=== PATIENT | female | born 1970 | race Caucasian/White ===

== ENCOUNTER 2018-01-27 13:45 | Emergency (ER) | payer OTHER ==
[~2018-01-27] VITALS: Ht 160 cm; Wt 45.4 kg
[2018-01-27] MEDS ORDERED: PROP20TA19 PO (13:55)
[2018-01-27] MEDS ORDERED: ALBU18HF2 IH (13:55)
[2018-01-27] MEDS ORDERED: LORA-259 PO (13:55)
[2018-01-27] MEDS ORDERED: METH10TA80 PO (13:55)
[2018-01-27] MEDS ORDERED: PROPRANOLOL HCL 1 MG/1 ML VIAL IVP ONE ×2 (14:45→15:30)
[2018-01-27] MEDS ORDERED: LORAZEPAM 2 MG/1 ML VIAL IV ONE (14:45)
[2018-01-27] MEDS ORDERED: ONDANSETRON 4 MG/2 ML VIAL IV ONE (14:45)
[2018-01-27] MEDS ORDERED: IV NORMAL SALINE 1000 ML BAG IV ONE (14:45)
[2018-01-27] MEDS ORDERED: ONDANSETRON 4 MG/2 ML VIAL ONE (14:52)
[2018-01-27] MEDS ORDERED: LORAZEPAM 2 MG/1 ML VIAL ONE (14:53)
[2018-01-27 15:15] LABS: BASOPHILS % (AUTO) 0.7 % (0.0-2.0); EOSINOPHILS # (AUTO) 0.2 K/uL (0.0-0.7); EOSINOPHILS % (AUTO) 4.4 % (0.0-7.0); HEMATOCRIT 45.2 % (31.2-41.9); HEMOGLOBIN 14.9 g/dL (10.9-14.3); LYMPHOCYTES # (AUTO) 2.1 K/uL (20.0-40.0); LYMPHOCYTES % (AUTO) 38.9 % (20.5-51.5); MEAN CORPUSCULAR HEMOGLOBIN 25.8 uug (24.7-32.8); MEAN CORPUSCULAR HGB CONC 33 g/dL (32.3-35.6); MEAN CORPUSCULAR VOLUME 78.5 fL (75.5-95.3); MONOCYTES # (AUTO) 0.6 K/uL (2.0-10.0); MONOCYTES % (AUTO) 11.6 % (0.0-11.0); NEUTROPHILS # (AUTO) 2.4 K/uL (1.8-8.9); NEUTROPHILS % (AUTO) 44.4 % (38.5-71.5); PLATELET COUNT (AUTO) 204 K/uL (179-408); RED BLOOD CELL COUNT(AUTO) 5.76 MIL/uL (3.63-4.92); WHITE BLOOD COUNT (AUTO) 5.5 K/uL (3.8-11.8)
[2018-01-27 15:28] VITALS: BP 133/86
[2018-01-27 15:34] LABS: CARBON DIOXIDE 26 mmol/L (21-32); CHLORIDE 103 mmol/L (98-107); CREATININE 0.5 mg/dL (0.6-1.3); GLUCOSE 115 mg/dL (74-106); POTASSIUM 3.9 mmol/L (3.5-5.1); UREA NITROGEN, BLOOD 28 mg/dL (7-18)
[2018-01-27 15:39] LABS: ALANINE AMINOTRANSFERASE 44 U/L (14-59); ALKALINE PHOSPHATASE 153 U/L (50-136); ASPARTATE AMINOTRANSFERASE 28 U/L (15-37); BILIRUBIN,DIRECT 0.1 mg/dL (0.0-0.2); BILIRUBIN,TOTAL 0.4 mg/dL (0.2-1.0); TOTAL PROTEIN, SERUM 8.3 g/dL (6.4-8.2)
--- NOTE | 2018-01-27 16:00 | NUR ---
Pt sleeping with eyes closed, NAD noted.
[2018-01-27 16:31] LABS: THYROID STIMULATING HORMONE < 0.007 mIU/mL (0.358-3.740)
--- NOTE | 2018-01-27 17:00 | NUR ---
Called [facility] transfer center per Dr. Carbajal request. Spoke with Garth who stated we need to call the IPA first. Face sheet faxed to Garth ([phone]) as requested. Martha in ER admitting notified and stated she will call the IPA.
--- NOTE | 2018-01-27 17:20 | NUR ---
Dr. Carbajal spoke with Gagan from pt's IPA via telephone.
--- NOTE | 2018-01-27 17:28 | NUR ---
Received telephone call from Gagan from pt's IPA who stated our ER physician needs to speak with Dr. Gomez ([phone]) to discuss the case.
--- NOTE | 2018-01-27 17:30 | NUR ---
Called Dr. Gomez at [phone] twice and number was busy.
--- NOTE | 2018-01-27 17:40 | NUR ---
Dr. Carbajal spoke with Dr. Gomez ) via telephone. Per Dr. Carbajal the patient was accepted by Dr. Gomez.
--- NOTE | 2018-01-27 18:00 | NUR ---
Pt is resting in gurney and eating a sandwich with NAD noted at this time. Pending call back with further transfer information.
--- NOTE | 2018-01-27 18:10 | NUR ---
While pt was eating she pulled her saline lock out by accident (left hand, cath intact ). New saline lock started to RAC.
--- NOTE | 2018-01-27 19:05 | NUR ---
Hands off report given to Isidro GRIFFIN.
--- NOTE | 2018-01-27 19:09 | NUR ---
Received call from [facility]hmadi, room provided for patient [id number], Tel# to report to . Daiana requested face sheet and patient medical information to be faxed to .
--- NOTE | 2018-01-27 19:35 | NUR ---
Called [facility] for patient transport to [facility], spoke with DAVID Georges for ACLS transport [id number]. Trip# [id number].
--- NOTE | 2018-01-27 19:35 | NUR ---
Sachi leal in ED - 01/27/18 at 7 by DARLINE Called [facility] for patient transport to [facility], spoke with DAVID Georges for ACLS transport 0. Trip# [id number].
--- NOTE | 2018-01-27 21:42 | NUR ---
Passed SBAR report to [facility] ELIAS Benitez.
--- NOTE | 2018-01-27 22:55 | NUR ---
[facility] arrived to transport patient to [facility].
--- NOTE | 2018-01-27 23:05 | NUR ---
Patient out of ER via [facility] to be transported to [facility].
== END 2018-01-27 23:08 | disposition short-term general hospital (02) ==
LOC: ER 13:46
DX: E05.01 Thyrotoxicosis with diffuse goiter with thyrotoxic crisis or storm (principal); J45.909 Unspecified asthma, uncomplicated; F17.210 Nicotine dependence, cigarettes, uncomplicated; Z88.0 Allergy status to penicillin; Z79.899 Other long term (current) drug therapy
CPT/HCPCS: 36415; 70030-TC; 71045; 82533; 84443; 85025; 85730; 93005; A4663; J1800; J2060; J2405; J7030

== ENCOUNTER 2019-11-22 22:09 | Emergency (ER) | payer OTHER ==
[~2019-11-22] VITALS: Ht 160 cm; Wt 45.4 kg
--- NOTE | 2019-11-22 22:20 | NUR ---
Dr. Mao at bedside for MSE
[2019-11-22 22:56] LABS: BASOPHILS % (AUTO) 0.3 % (0.0-2.0); EOSINOPHILS # (AUTO) 0.3 K/uL (0.0-0.7); EOSINOPHILS % (AUTO) 2.9 % (0.0-7.0); HEMATOCRIT 41.1 % (31.2-41.9); HEMOGLOBIN 13.4 g/dL (10.9-14.3); LYMPHOCYTES # (AUTO) 1.7 K/uL (20.0-40.0); LYMPHOCYTES % (AUTO) 16.5 % (20.5-51.5); MEAN CORPUSCULAR HEMOGLOBIN 26.2 uug (24.7-32.8); MEAN CORPUSCULAR HGB CONC 33 g/dL (32.3-35.6); MEAN CORPUSCULAR VOLUME 80.2 fL (75.5-95.3); MONOCYTES # (AUTO) 0.8 K/uL (2.0-10.0); MONOCYTES % (AUTO) 7.5 % (0.0-11.0); NEUTROPHILS # (AUTO) 7.4 K/uL (1.8-8.9); NEUTROPHILS % (AUTO) 72.8 % (38.5-71.5); PLATELET COUNT (AUTO) 199 K/uL (179-408); RED BLOOD CELL COUNT(AUTO) 5.12 MIL/uL (3.63-4.92); WHITE BLOOD COUNT (AUTO) 10.1 K/uL (3.8-11.8)
[2019-11-22 23:01] LABS: CARBON DIOXIDE 31 mmol/L (21-32); CHLORIDE 100 mmol/L (98-107); CREATININE 0.4 mg/dL (0.6-1.3); GLUCOSE 126 mg/dL (74-106); POTASSIUM 4.3 mmol/L (3.5-5.1); UREA NITROGEN, BLOOD 13 mg/dL (7-18)
[2019-11-22 23:12] LABS: ALANINE AMINOTRANSFERASE 33 U/L (14-59); ALKALINE PHOSPHATASE 168 U/L (50-136); ASPARTATE AMINOTRANSFERASE 13 U/L (15-37); BILIRUBIN,DIRECT 0.1 mg/dL (0.0-0.2); BILIRUBIN,TOTAL 0.4 mg/dL (0.2-1.0); TOTAL PROTEIN, SERUM 7.7 g/dL (6.4-8.2)
[2019-11-22] MEDS ORDERED: IV NS 1000 ML 1,000 ML IV ONE (23:45)
[2019-11-22] MEDS ORDERED: PROPRANOLOL HCL 10 MG TABLET PO ONE (23:45)
[2019-11-23] MEDS ORDERED: PROPRANOLOL HCL 10 MG TABLET ONE
--- NOTE | 2019-11-23 00:38 | NUR ---
urine sample collected and sent to lab
[2019-11-23 00:45] LABS: *BILIRUBIN,URIN NEGATIVE (NEGATIVE); *BLOOD, URINE 2+ (NEGATIVE); *CLARITY,URINE CLOUDY (CLEAR); *COLOR,URINE YELLOW (YELLOW); *KETONES,URINE NEGATIVE (NEGATIVE); *UROBILINOGEN,URINE 0.2 E.U./dl (NORMAL); LEUKOCYTE ESTERASE ,URINE 3+ (NEGATIVE); NITRITE, URINE NEGATIVE (NEGATIVE); UGLUCOSE NEGATIVE (NEGATIVE)
--- NOTE | 2019-11-23 00:46 | NUR ---
Patient taken to CT scan in stable condition
[2019-11-23] MEDS ORDERED: SWABABLE VALVE TRANSFER SET EA MC ONE (00:47)
[2019-11-23] MEDS ORDERED: IV NORMAL SALINE 250 ML IV ONE (00:47)
[2019-11-23] MEDS ORDERED: IOHEXOL 300MG/ML 100 ML INFUS..BTL ONE (00:47)
--- NOTE | 2019-11-23 01:00 | NUR ---
patient back from CT scan
[2019-11-23] MEDS ORDERED: METHIMAZOLE 5 MG TABLET PO SCH (01:15)
--- NOTE | 2019-11-23 01:22 | NUR ---
IV removed. Catheter intact and site benign. Pressure and 4x4 gauze applied to site. No bleeding noted. Patient does not wish to proceed with medical care recommended by Dr. Mao. Patient given information related to possible complications, up to and including , which could occur as a result of leaving the hospital at this time. Patient verbalizes understanding of risks involved due to leaving against medical advice. Patient has signed AMA form. Patient ambulating with steady gait
[2019-11-23 01:29] VITALS: BP 134/72
[2019-11-23 01:36] LABS: BACTERIA,URINE MODERATE /HPF (NONE SEEN); RBC,URINE 20-50 /HPF (0-3); SQUAMOUS EPITHELIAL CELL,UR FEW /HPF (NONE SEEN); WBC,URINE 50-80 /HPF (0-3)
== END 2019-11-23 01:22 | disposition left against medical advice (07) ==
LOC: ER 22:09
DX: N39.0 Urinary tract infection, site not specified (principal); E05.90 Thyrotoxicosis, unspecified without thyrotoxic crisis or storm; J45.909 Unspecified asthma, uncomplicated; F41.9 Anxiety disorder, unspecified; F17.210 Nicotine dependence, cigarettes, uncomplicated; F32.9 Major depressive disorder, single episode, unspecified; Z76.0 Encounter for issue of repeat prescription; Z88.0 Allergy status to penicillin; Z88.2 Allergy status to sulfonamides; Z79.899 Other long term (current) drug therapy
CPT/HCPCS: 36415; 80048; 80076; 81000; 81001; 84443; 85025; 87077; 87086; 87186; 99283; 99406; Q9967; A4663; J7030; J7050

== ENCOUNTER 2022-05-24 11:32 | Emergency (ER) | payer OTHER ==
[~2022-05-24] VITALS: Ht 160 cm; Wt 49.9 kg
[~2022-05-24 11:32] MED LIST: ALBU18HF2 IH; ALBU8.5H8 IH; LORA-259 PO; LORA0.5T48 PO; METH10TA80 PO; METH5TAB6 PO; PROP20TA19 PO; PROP20TA7 PO
[2022-05-24] MEDS ORDERED: IV NORMAL SALINE 1000 ML BAG IV ONE (11:45)
[2022-05-24] MEDS ORDERED: KETOROLAC TROMETHAMINE 15 MG INJ IVP ONE (11:45)
[2022-05-24] MEDS ORDERED: KETOROLAC TROMETHAMINE 15 MG INJ ONE (12:00)
[2022-05-24 12:02] LABS: HEMATOCRIT 42.1 % (31.2-41.9); MEAN CORPUSCULAR HEMOGLOBIN 27.7 uug (24.7-32.8); PLATELET COUNT (AUTO) 241 K/uL (179-408)
[2022-05-24 12:16] LABS: CREATININE 0.6 mg/dL (0.6-1.3); POTASSIUM 4.5 mmol/L (3.5-5.1)
[2022-05-24 12:21] LABS: BILIRUBIN,DIRECT 0.1 mg/dL (0.0-0.2); BILIRUBIN,TOTAL 0.3 mg/dL (0.2-1.0); TOTAL PROTEIN, SERUM 8.1 g/dL (6.4-8.2)
[2022-05-24 12:27] LABS: *BILIRUBIN,URIN NEGATIVE (NEGATIVE); *BLOOD, URINE NEGATIVE (NEGATIVE); *CLARITY,URINE CLEAR (CLEAR); *COLOR,URINE YELLOW (YELLOW); *KETONES,URINE NEGATIVE (NEGATIVE); *UROBILINOGEN,URINE 0.2 E.U./dl (NORMAL); LEUKOCYTE ESTERASE ,URINE TRACE (NEGATIVE); NITRITE, URINE NEGATIVE (NEGATIVE); UGLUCOSE NEGATIVE (NEGATIVE)
[2022-05-24 12:30] LABS: *URINE HCG, QUAL NEGATIVE (NEGATIVE)
[2022-05-24 12:59] LABS: BACTERIA,URINE NONE SEEN /HPF (NONE SEEN); RBC,URINE NONE SEEN /HPF (0-3); SQUAMOUS EPITHELIAL CELL,UR MODERATE /HPF (NONE SEEN)
--- NOTE | 2022-05-24 13:24 | NUR ---
2nd call to radiologists.
--- NOTE | 2022-05-24 13:30 | NUR ---
pt c/o IV fluid hurting her arm and making her cold. IV NS stopped. aware.
[2022-05-24] MEDS ORDERED: IBUP-1955 PO (13:59)
[2022-05-24] MEDS ORDERED: NITR100C11 PO (13:59)
--- NOTE | 2022-05-24 14:30 | NUR ---
IV removed intact, site okay, bandaged. pt given RX and d/c instructions, pt verbalized understanding.
== END 2022-05-24 14:56 | disposition home or self-care (01) ==
LOC: ER 11:37
DX: N39.0 Urinary tract infection, site not specified (principal); D25.9 Leiomyoma of uterus, unspecified; R10.2 Pelvic and perineal pain; Z88.0 Allergy status to penicillin; Z88.2 Allergy status to sulfonamides; J45.909 Unspecified asthma, uncomplicated; E05.00 Thyrotoxicosis with diffuse goiter without thyrotoxic crisis or storm; F41.8 Other specified anxiety disorders; F32.A Depression, unspecified; Z79.899 Other long term (current) drug therapy; Z87.440 Personal history of urinary (tract) infections
CPT/HCPCS: 99284; 74176; 96374; 96361; 80076; 80048; 81001; 84703; 83690; 85025; 36415; J1885; J7040; A4663

== ENCOUNTER 2022-06-17 21:50 | Emergency (ER) | payer SELFPAY ==
[~2022-06-17 21:50] MED LIST changes: +IBUP-1955 PO; +NITR100C11 PO
--- NOTE | 2022-06-17 23:34 | NUR ---
Pt not in waiting room.
== END 2022-06-17 23:34 | disposition left against medical advice (07) ==
LOC: ER 21:50
DX: Z53.21 Procedure and treatment not carried out due to patient leaving prior to being seen by health care provider (principal)

== ENCOUNTER 2025-09-01 21:51 | Emergency (ER) | payer OTHER ==
[~2025-09-01] VITALS: Ht 157.5 cm; Wt 49.9 kg
[2025-09-01 22:10] VITALS: O2SAT 97
[2025-09-01] MEDS: ALBUTEROL SULFATE 2.5 MG/3 ML NEBU NEB ONE (22:13)
[2025-09-01] MEDS: IPRATROPIUM BROMIDE 0.5 MG/2.5 ML NEBU NEB ONE (22:13)
[2025-09-01] MEDS ORDERED: IPRATROPIUM BROMIDE 0.5 MG/2.5 ML NEBU ONE (22:15)
[2025-09-01] MEDS ORDERED: ALBUTEROL SULFATE 2.5 MG/3 ML NEBU ONE (22:15)
[2025-09-01 22:25] VITALS: O2SAT 99
[2025-09-01 22:26] LABS: PLATELET COUNT (AUTO) 254 K/uL (179-408); RED BLOOD CELL COUNT(AUTO) 5.02 MIL/uL (3.63-4.92); RED CELL DISTRIBUTION WIDTH 13.0 % (12.3-17.7); WHITE BLOOD COUNT (AUTO) 6.8 K/uL (3.8-11.8)
[2025-09-01 22:57] LABS: ASPARTATE AMINOTRANSFERASE 11 U/L (15-37); CREATININE 0.5 mg/dL (0.6-1.3); SODIUM SERUM 138 mmol/L (136-145); TOTAL PROTEIN, SERUM 7.6 g/dL (6.4-8.2)
[2025-09-01 23:09] LABS: UREA NITROGEN, BLOOD 21 mg/dL (7-18)
[2025-09-01] MEDS ORDERED: LORAZEPAM 0.5 MG TABLET ONE (23:11)
[2025-09-01] MEDS: LORAZEPAM 0.5 MG TABLET PO ONE (23:14)
[2025-09-01] MEDS ORDERED: ALBU8.5H8 IH (23:54)
[2025-09-01] MEDS ORDERED: PRED20TA PO (23:54)
[2025-09-01] MEDS ORDERED: FLUT1DIS28 INH (23:54)
[2025-09-02 00:51] VITALS: BP 125/79
[2025-09-02 01:24] VITALS: BP 127/78; O2SAT 98
== END 2025-09-02 00:51 | disposition home or self-care (01) ==
LOC: ER 22:15 → MERGE 22:15 → ER 09-02 00:51
DX: J44.1 Chronic obstructive pulmonary disease with (acute) exacerbation (principal); R07.9 Chest pain, unspecified; I49.3 Ventricular premature depolarization; Z79.51 Long term (current) use of inhaled steroids; Z79.52 Long term (current) use of systemic steroids; Z87.891 Personal history of nicotine dependence; Z88.0 Allergy status to penicillin; Z88.2 Allergy status to sulfonamides; Z88.7 Allergy status to serum and vaccine; Z98.51 Tubal ligation status; Z79.899 Other long term (current) drug therapy; Z20.822 Contact with and (suspected) exposure to COVID-19
CPT/HCPCS: 99285; 71045; 87426; 87804 ×2; 80076; 80048; 83880; 84439; 84443; 85025; 85379; 84484 ×2; 36415 ×2; 94640; 93005; J7512 ×2; A4606; A4663; J3590